=== PATIENT | female | born 1975 | race Two or more races ===

== ENCOUNTER 2019-01-15 15:54 | Emergency (ER) | payer OTHER, MEDICAID ==
[~2019-01-15] VITALS: Ht 162.6 cm; Wt 51.3 kg
--- NOTE | 2019-01-15 16:00 | NUR ---
[id number] FROM HOME 43 YEAR OLD FEMALE FOR AMS X 5 DAYS, BG 129 DIAMOND EXP[employer]. HX SEIZURE PT C/O HEADACHE. ALERT AND ORIENTED X2, BREATHING EVEN AND UNLABORED WITH NO DISTRESS NOTED. NOTED DIAMOND EXPERT RIGHT FA 18G IV SITE. SKIN INTACT. WAITING TO BE SEEN BY
--- NOTE | 2019-01-15 16:37 | NUR ---
HOSPITAL MORTICIAN AT BEDSIDE
--- NOTE | 2019-01-15 16:37 | NUR ---
RT AT BESIDE FOR ABGS
[2019-01-15 16:39] LABS: BASOPHILS % (AUTO) 0.8 % (0.0-2.0); EOSINOPHILS % (AUTO) 0.9 % (0.0-6.0); HEMATOCRIT 39 % (33-45); HEMOGLOBIN 13.5 g/dL (11.5-14.8); LYMPHOCYTES # (AUTO) 2.2 /CMM (0.8-4.8); LYMPHOCYTES % (AUTO) 38.3 % (20.0-44.0); MEAN CORPUSCULAR HGB CONC 34 g/dl (31.0-36.0); MEAN CORPUSCULAR VOLUME 96 fL (82-100); MONOCYTES # (AUTO) 0.4 /CMM (0.1-1.30); MONOCYTES % (AUTO) 7.2 % (2.0-12.0); NEUTROPHILS % (AUTO) 52.8 % (43.0-81.0); PLATELET COUNT (AUTO) 132 /CMM (150-450); RED BLOOD CELL COUNT(AUTO) 4.12 MIL/uL (4.0-5.2); WHITE BLOOD COUNT (AUTO) 5.6 K/uL (4.3-11.0)
[2019-01-15 16:39] LABS: ABG BASE EXCESS -2.9 mmol/L; ABG OXYGEN SATURATION 96.8 % (92.0-98.5); ABG PCO2 33.1 mmHg (35.0-45.0); ABG PH 7.416 (7.350-7.450); ABG PO2 93.6 mmHg (75.0-100.0); AaDO2 16.5 mmHg; COHb 0.5 % (0.5-1.5); MetHb 0.4 % (0.0-1.5); O2Hb 95.9 % (94.0-97.0); SITE, ABG Right Brachial; VENT MODE, BG ROOM AIR
--- NOTE | 2019-01-15 16:47 | NUR ---
URINE COLLECTED SENT TO LAB
[2019-01-15 16:55] LABS: APPEARANCE,URINE Slightly Cloudy (CLEAR); BILIRUBIN,URINE Negative (NEGATIVE); BLOOD, URINE Negative Ery/uL (NEGATIVE); COLOR,URINE Yellow (YELLOW); KETONES,URINE Negative (NEGATIVE); LEUKOCYTE ESTERASE ,URINE Negative (NEGATIVE); NITRITE, URINE Positive (NEGATIVE); PROTEIN,URINE Negative (NEGATIVE); UGLUCOSE Negative (NEGATIVE)
[2019-01-15 16:57] LABS: ALANINE AMINOTRANSFERASE 15 U/L (12-78); ALBUMIN 3.5 g/dL (3.4-5.0); ALKALINE PHOSPHATASE 67 U/L (46-116); ASPARTATE AMINOTRANSFERASE 11 U/L (15-37); BILIRUBIN,DIRECT 0.1 mg/dL (0.0-0.2); BILIRUBIN,TOTAL 0.2 mg/dL (0.2-1.0); CALCIUM, SERUM 8.7 mg/dL (8.5-10.1); CARBON DIOXIDE 24 mmol/L (21-32); CHLORIDE 105 mmol/L (98-107); CREATININE 0.9 mg/dL (0.6-1.3); GLUCOSE 96 mg/dL (74-106); POTASSIUM 3.9 mmol/L (3.5-5.1); SODIUM SERUM 139 mmol/L (136-145); TOTAL PROTEIN, SERUM 7.3 g/dL (6.4-8.2); UREA NITROGEN, BLOOD 15 mg/dL (7-18)
[2019-01-15 17:00] LABS: ALCOHOL, BLOOD < 3 mg/dL (0-0); MAGNESIUM 1.8 mg/dL (1.8-2.4)
[2019-01-15 17:03] LABS: BACTERIA,URINE Many /HPF (None Seen); RBC,URINE 0-2 /HPF (0-2); SQUAMOUS EPITHELIAL CELL,UR Many /HPF (None Seen); URINE AMORPHOUS URATE Moderate /HPF (None Seen)
[2019-01-15 17:08] LABS: VALPROIC ACID 79 ug/mL (50-100)
--- NOTE | 2019-01-15 17:12 | NUR ---
[employer] FINISHER HELPER AT BEDSIDE TO TAKE PATIENT FOR CT SCAN
[2019-01-15] MEDS ORDERED: CEFTRIAXONE 1 G in IV D5W 50 ML IV ONE (17:30)
[2019-01-15] MEDS ORDERED: DIVA-78 PO ×2 (17:44)
[2019-01-15] MEDS ORDERED: ZONI100C6 PO (17:44)
[2019-01-15] MEDS ORDERED: OXCA300T15 PO (17:44)
[2019-01-15] MEDS ORDERED: ACETAMINOPHEN 325 MG TABLET ONE (17:50)
[2019-01-15] MEDS ORDERED: ACETAMINOPHEN 325 MG TABLET PO ONE (18:00)
--- NOTE | 2019-01-15 19:12 | NUR ---
FAXED CLINICALS TO CASE MANAGEMENT AT [facility]
--- NOTE | 2019-01-15 19:13 | NUR ---
AWAITING CALL FROM DOCTOR CAMP FOR PEER TO PEER AND BED ASSIGNMENT.
--- NOTE | 2019-01-15 19:28 | NUR ---
AWAITING CALL BACK FOR PEER TO PEER
--- NOTE | 2019-01-15 19:29 | NUR ---
PT RECEIVED FROM FAUSTO MORGAN FOR [facility]. PT IN BED AAOX4. NO RESP DISTRESS. AWAITING ADMISSION INFORMATION
--- NOTE | 2019-01-15 21:50 | NUR ---
TRANSFER INFO: PT WILL GO TO [facility] DIRECT ADMIT TO ROOM [id number] RN FOR REPORT [phone] CAMP, ETA TO FOLLOW
--- NOTE | 2019-01-15 22:04 | NUR ---
REPORT GIVEN TO FAUSTO MAE FROM [facility] FOR [facility]. ETA 11PM
--- NOTE | 2019-01-15 22:08 | NUR ---
[facility] ([facility]3] AMBULANCE ETA [id number]
[2019-01-15 22:42] VITALS: BP 131/61
--- NOTE | 2019-01-15 22:43 | NUR ---
[id number] AT BEDSIDE FOR PT TRANSPORT TO [facility]. PT IS ON STABLE CONDITION FOR TRASNPORT. NAD NOTED. REPORT GIVEN
== END 2019-01-15 22:47 | disposition short-term general hospital (02) ==
LOC: ER 16:05
DX: G93.40 Encephalopathy, unspecified (principal); N39.0 Urinary tract infection, site not specified; D69.6 Thrombocytopenia, unspecified; R51 Headache; R56.9 Unspecified convulsions; E11.9 Type 2 diabetes mellitus without complications
CPT/HCPCS: 36415; 36600 ×2; 70450; 71045; 80048; 80076; 80164; 80305; 80307; 81001; 82803; 83605; 83735; 84145; 84484; 84702; 85025; 85730; 87040 ×2; 87077; 87081; 87086; 87186; 93005; 96365; 99285; J0696; J7060; 81000-TC; G0480